=== PATIENT | female | born 1960 | race Caucasian/White ===

== ENCOUNTER → 2016-12-30 | Outpatient (CLI) | payer MEDICAID | LOC: BMCIMAGING 08:42 | PROVIDERS: ATTEND Family Medicine | DX: Z12.31 Encounter for screening mammogram for malignant neoplasm of breast (principal); Z80.3 Family history of malignant neoplasm of breast | CPT/HCPCS: G0202 ==

== ENCOUNTER 2018-05-20 08:40 | Emergency (ER) | payer MEDICAID ==
--- NOTE | 2018-05-20 09:41 | EDPHY ---
H & P Stated Complaint: R wrist and ankle pain Time Seen by Provider: 05/20/18 08:52 HPI/ROS: CHIEF COMPLAINT: Fall, right ankle pain HISTORY OF PRESENT ILLNESS: 58-year-old female presents after a fall with right ankle pain. She was walking her dog yesterday evening, slipped on slippery pavement and fell forward directly onto her hands. She struck her nose and had a transient nosebleed. Since the injury she has been unable to bear weight on the right leg because of moderate right ankle pain. She also has mild right wrist pain. No BECERRA, neck pain or other injuries. REVIEW OF SYSTEMS: complete 10 point ROS reviewed and is negative except for the noted elements in the HPI - Personal History Current Tetanus/Diphtheria Vaccine: No Current Tetanus Diphtheria and Acellular Pertussis (TDAP): No - Medical/Surgical History Hx Asthma: No Hx Chronic Respiratory Disease: No Hx Diabetes: No Hx Cardiac Disease: No Hx Renal Disease: No Hx Cirrhosis: No Hx Alcoholism: Yes Hx HIV/AIDS: No Hx Splenectomy or Spleen Trauma: No Other PMH: depression, rt wrist fx hardware, alcoholism/PANCREATITIS - Social History Smoking Status: Never smoked Constitutional: Initial Vital Signs Temperature (C) 37.3 C 05/20/18 08:46 Heart Rate 87 05/20/18 08:46 Respiratory Rate 16 05/20/18 08:46 Blood Pressure 143/97 H 05/20/18 08:46 O2 Sat (%) 97 05/20/18 08:46 O2 Delivery Mode Room Air Allergies/Adverse Reactions: No Known Allergies Allergy (Verified 05/20/18 08:45) Home Medications: Medication Instructions Recorded Alendronate Sodium [Fosamax 70 MG 70 mg PO MO@0700 12/28/14 (*)] Ibuprofen [Motrin (*)] 600 mg PO Q8 #15 tab 04/27/15 Herbals/Supplements -Info Only 03/31/16 Ibuprofen 800 mg PO Q8 PRN #30 tablet 05/20/18 Medical Decision Making - Diagnostics Imaging Results: Imaging Impressions Ankle X-Ray 05/20/18 08:48 Impression: Negative. No acute fracture. Wrist X-Ray 05/20/18 09:25 Impression: Acute nondisplaced ulna styloid fracture. Foot X-Ray 05/20/18 09:37 Impression: Negative. No acute fracture. Imaging: I viewed and interpreted images myself ED Course/Re-evaluation: This pt presents after a fall with an ulnar styloid fx and foot/ankle pain without fx. Will place in velcro wrist splint and on crutches. NARINDER f/u ortho. Departure - Departure Disposition: Home, Routine, Self-Care Clinical Impression: Dislocation of right ulnar styloid Qualifiers: Encounter type: initial encounter Qualified Code(s): S63.074A - Dislocation of distal end of right ulna, initial encounter Foot contusion Qualifiers: Encounter type: initial encounter Laterality: right Qualified Code(s): S90.31XA - Contusion of right foot, initial encounter Condition: Good Instructions: Wrist Fracture in Adults (ED) Additional Instructions: Take Tylenol 650 mg every 4 hours and/or Ibuprofen 600 mg every 8 hours with food as needed for pain. Apply ice for 30 minutes at a time; 2-3 times per day for the next 1-2 days. Follow up with Orthopedics. The x-rays obtained in the emergency department today demonstrate no evidence of an obvious fracture. Referrals: Mayo Thomas MD [Medical Doctor] - As per Instructions (Call to make an appointment.) Prescriptions: Ibuprofen 800 mg PO Q8 PRN #30 tablet PRN Reason: pain
[2018-05-20 10:52] VITALS: BP 148/90
== END 2018-05-20 11:45 | disposition home or self-care (01) ==
DX: S52.614A Nondisplaced fracture of right ulna styloid process, initial encounter for closed fracture (principal); S90.31XA Contusion of right foot, initial encounter; W01.198A Fall on same level from slipping, tripping and stumbling with subsequent striking against other object, initial encounter; Y93.K1 Activity, walking an animal; Y92.480 Sidewalk as the place of occurrence of the external cause
CPT/HCPCS: L3984